=== PATIENT | female | born 1980 | race Two or more races ===

== ENCOUNTER 2017-03-12 11:29 | Emergency (ER) | payer MEDICAID ==
[~2017-03-12] VITALS: Ht 157.5 cm; Wt 81.6 kg
[2017-03-12] MEDS ORDERED: UNOBMED (11:42)
[2017-03-12 12:35] VITALS: BP 130/72
[2017-03-12 12:50] VITALS: BP 130/72
--- NOTE | 2017-03-13 15:52 | Emergency Room Report ---
History of Present Illness General Chief Complaint: Female Urogenital Problems Source: Patient Present Illness HPI 36-year-old female presents ED for Vega catheter placement. Patient is paraplegic and is unable to void. Normally has a Vega catheter but came out last night. Notes bladder fullness. Denies fevers or chills. Denies flank pain. Denies nausea or vomiting. No other aggravating relieving factors. Denies any other associated symptoms Allergies: Coded Allergies: PENICILLINS (Verified Allergy, Unknown, 03/12/17) Patient History Past Medical History: other - paraplegic Past Surgical History: none Pertinent Family History: none Social History: Denies: smoking, alcohol use, drug use Last Menstrual Period: 02/18/17. Now: No Immunizations: UTD Reviewed Nursing Documentation: PMH: Agreed, PSxH: Agreed Review of Systems All Other Systems: negative except mentioned in HPI Physical Exam Vital Signs Date Time Temp Pulse Resp B/P (MAP) Pulse Ox O2 Delivery O2 Flow Rate FiO2 03/12/17 11:38 Room Air 03/12/17 12:35 98.3 80 20 130/72 100 Sp02 EP Interpretation: reviewed, normal General Appearance: no apparent distress, alert, GCS 15, non-toxic Head: normocephalic, atraumatic Eyes: bilateral eye normal inspection, bilateral eye PERRL ENT: hearing grossly normal, normal pharynx, no angioedema, normal voice Neck: full range of motion, supple/symm/no masses Respiratory: chest non-tender, lungs clear, normal breath sounds, speaking full sentences Cardiovascular #1: regular rate, rhythm, no edema Cardiovascular #2: 2+ carotid (R), 2+ carotid (L), 2+ radial (R), 2+ radial (L) , 2+ dorsalis pedis (R), 2+ dorsalis pedis (L) Gastrointestinal: normal bowel sounds, non tender, soft, non-distended, no guarding, no rebound Rectal: deferred Genitourinary: normal inspection, no CVA tenderness Musculoskeletal: back normal Neurologic: alert, oriented x3, responsive, motor strength/tone normal, sensory intact, speech normal Psychiatric: judgement/insight normal, memory normal, mood/affect normal, no suicidal/homicidal ideation Reflexes: 3+ bicep (R), 3+ bicep (L), 3+ tricep (R), 3+ tricep (L), 3+ knee (R) , 3+ knee (L) Skin: normal color, no rash, warm/dry, well hydrated Lymphatic: no adenopathy Medical Decision Making Diagnostic Impression: Primary Impression: Acute retention of urine ER Course Hospital Course 36-year-old F presents to ED complaining of urinary retention. paraplegic, vega catheter came out Differential diagnoses include: obstruction, UTI, BPH Clinical course Patient placed on stretcher. After initial history and physical I ordered vega cather with immediate relief of obstruction Diagnosis - urinary retention Stable and discharged home with vega + leg bag. Instructed to followup with PMD/urologist. Return to ED if symptoms recur or worsen Last Vital Signs Date Time Temp Pulse Resp B/P (MAP) Pulse Ox O2 Delivery O2 Flow Rate FiO2 03/12/17 12:50 98.3 80 20 130/72 100 Room Air Disposition: HOME, SELF-CARE Condition: Stable Referrals: [facility],REFERRING (PCP) Patient Instructions: Acute Urinary Retention, Female, [id number] SILVESTRE REEVES M.D. Mar 13, 2017 15:52
== END 2017-03-12 12:52 | disposition home or self-care (01) ==
LOC: EMR 11:51
DX: R33.9 Retention of urine, unspecified (principal); G82.20 Paraplegia, unspecified; Z88.0 Allergy status to penicillin
CPT/HCPCS: 51702; 99283

== ENCOUNTER 2017-03-15 14:13 | Emergency (ER) | payer MEDICAID ==
[~2017-03-15] VITALS: Ht 157.5 cm; Wt 81.6 kg
[~2017-03-15 14:13] MED LIST: UNOBMED
[2017-03-15 15:17] VITALS: BP 163/103
[2017-03-15 17:03] VITALS: BP 138/84
[2017-03-15] MEDS ORDERED: BACLOFEN10 MG ORAL (17:06)
--- NOTE | 2017-03-15 22:51 | Emergency Room Report ---
History of Present Illness General Chief Complaint: General Complaint Source: Patient, Medical Record Present Illness HPI The patient is a 36-year-old female with a history of paraplegia presenting for Pitts catheter replacement. She was seen in this emergency department 3 days prior for the same complaint. She states that she frequently gets muscular cramps which leads to the removal of the Pitts catheter. She denies any pain. She denies dysuria, vaginal DC, abd pain, back pain, fever, chills Allergies: Coded Allergies: PENICILLINS (Verified Allergy, Unknown, 03/12/17) Patient History Past Medical History: see triage record Pertinent Family History: none Reviewed Nursing Documentation: PMH: Agreed, PSxH: Agreed Nursing Documentation-PMH Past Medical History: No History, Except For Review of Systems All Other Systems: negative except mentioned in HPI Physical Exam Vital Signs Date Time Temp Pulse Resp B/P (MAP) Pulse Ox O2 Delivery O2 Flow Rate FiO2 03/15/17 14:32 98.1 101 18 163/103 98 Room Air Sp02 EP Interpretation: reviewed, normal General Appearance: no apparent distress, alert, GCS 15, non-toxic Head: normocephalic, atraumatic Eyes: bilateral eye normal inspection, bilateral eye PERRL Gastrointestinal: normal bowel sounds, non tender, soft, non-distended, no guarding, no rebound Genitourinary: normal inspection, no CVA tenderness Musculoskeletal: back normal, gait/station normal, normal range of motion, non- tender Neurologic: alert, oriented x3, responsive, motor strength/tone normal, sensory intact, speech normal Skin: normal color, no rash, warm/dry, well hydrated Medical Decision Making PA Attestation Dr. Reese is my supervising physician. Patient management was discussed with my supervising physician Diagnostic Impression: Primary Impression: Malfunction of Pitts catheter Qualified Codes: T83.011A - Breakdown (mechanical) of indwelling urethral catheter, initial encounter ER Course The patient is a 36-year-old female with a history of paraplegia presenting for Pitts catheter replacement. Differential diagnosis considered but not limited to: Pitts malfunction, UTI, BV , yeast infection, pyelonephritis, among others PE: Afebrile. NAD. Abdomen: Normal appearance. Non distended. No ecchymosis. Normal BS. TTP over suprapubic region only. No McBurney point tenderness. No guarding. No CVA tenderness Wheelchair bound Pitts catheter is placed without any difficulty. Urine appears clear but is sent for culture as precaution. She is discharged home with prescription for baclofen and will followup with her primary doctor. ER precautions are given Last Vital Signs Date Time Temp Pulse Resp B/P (MAP) Pulse Ox O2 Delivery O2 Flow Rate FiO2 03/15/17 17:03 72 20 138/84 100 Room Air 03/15/17 15:17 98.1 Status: improved Disposition: HOME, SELF-CARE Condition: Improved Scripts Baclofen* (BACLOFEN*) 10 Mg Tablet 10 MG ORAL THREE TIMES A DAY, #15 TAB Prov: CECI MCKEON 03/15/17 Patient Instructions: Pitts Catheter Care, Adult Additional Instructions: I discussed my findings with the patient. All questions and concerns have been answered. Treatment and medication compliance have been addressed. I advised the patient that they need to follow up with PMD in 3-5 days. Return to ED if symptoms worsen, new symptoms arise, or if needed for any reason. Patient verbalized understanding of discharge instructions. CECI MCKEON Mar 15, 2017 22:51
== END 2017-03-15 17:06 | disposition home or self-care (01) ==
LOC: EMR 15:50
DX: T83.011A Breakdown (mechanical) of indwelling urethral catheter, initial encounter (principal); Z88.0 Allergy status to penicillin
CPT/HCPCS: 99283

== ENCOUNTER 2017-03-22 16:43 | Emergency (ER) | payer MEDICAID ==
[~2017-03-22] VITALS: Ht 160 cm; Wt 79.4 kg
[~2017-03-22 16:43] MED LIST changes: +BACLOFEN10 MG ORAL
--- NOTE | 2017-03-22 17:04 | Emergency Room Report ---
History of Present Illness General Chief Complaint: Female Urogenital Problems Source: Patient Present Illness HPI Patient presents after her Vega catheter came out. It's been happening frequently for her. She has a history of paraplegia and the Vega catheter is chronic. She denies any dysuria. She says it pops out. She denies any blood or any trauma down the genital region although she has decreased sensation there. There's been no fevers, nausea, vomiting, change in bowel habits. She' s requesting dose of baclofen at this time. Allegedly she does have this medicine. She states the vega becomes dislodged when she has muscle spasms. This is the 3rd visit for the same problem since 03/12 (second was 03/15). No headaches, increased weakness. No change in bowels. She denies seizures. Allergies: Coded Allergies: PENICILLINS (Verified Allergy, Unknown, 03/12/17) Patient History Past Medical History: see triage record Social History: Denies: smoking, alcohol use, drug use Social History Narrative wheelchair bound Last Menstrual Period: Unk Reviewed Nursing Documentation: PMH: Agreed, PSxH: Agreed Physical Exam Vital Signs Date Time Temp Pulse Resp B/P (MAP) Pulse Ox O2 Delivery O2 Flow Rate FiO2 03/22/17 16:55 Room Air Sp02 EP Interpretation: reviewed, normal General Appearance: alert, GCS 15, obese Head: normocephalic, atraumatic Eyes: bilateral eye PERRL, bilateral eye abnormal EOM - dyscongugate gaze ENT: hearing grossly normal, normal voice Neck: full range of motion, supple Respiratory: no respiratory distress, speaking full sentences Cardiovascular #1: regular rate, rhythm Cardiovascular #2: 2+ radial (L) Gastrointestinal: non tender, soft, overweight Genitourinary: no CVA tenderness Musculoskeletal: no calf tenderness, other - spasticity of L > R Neurologic: alert, oriented x3, speech normal, motor weakness - and increased tone L, dyscongugate gaze, sensory deficit - lower abdomen/genital regeon Psychiatric: mood/affect normal Skin: no rash Medical Decision Making Diagnostic Impression: Primary Impression: Malfunction of Vega catheter Qualified Codes: T83.011D - Breakdown (mechanical) of indwelling urethral catheter, subsequent encounter Additional Impression: UTI (urinary tract infection) Qualified Codes: N30.00 - Acute cystitis without hematuria ER Course Patient with paraplegia presents again with vega coming out. DDx: vega malfunction, muscle spasms, UTI amongst others. Doubt seizure activity. Patient pressured to continue baclofen and feels this prevents problem. Evaluation with UA. Will replace vega. Discussed need to follow up with her MD for evaluation why vega gets pulled out. No evidence of muscle spasms after baclofen given here. Discussed with caretakers - there was some difference in understanding about baclofen - they might have been giving it twice a day. Started on macrobid. Patient stable for outpatient observation and treatment. Laboratory Tests Test 03/22/17 17:50 Urine Color Pale yellow Urine Appearance Very cloudy Urine pH 6.5 (4.5-8.0) Urine Specific Logan 1.010 (1.005-1.035) Urine Protein 2+ (NEGATIVE) H Urine Glucose (UA) Negative (NEGATIVE) Urine Ketones Negative (NEGATIVE) Urine Occult Blood 4+ (NEGATIVE) H Urine Nitrite Positive (NEGATIVE) H Urine Bilirubin Negative (NEGATIVE) Urine Urobilinogen Normal MG/DL (0.0-1.0) Urine Leukocyte Esterase 3+ (NEGATIVE) H Urine RBC 5-10 /HPF (0 - 2) H Urine WBC Tntc /HPF (0 - 2) H Urine Squamous Epithelial Cells Few /LPF (NONE/OCC) Urine Bacteria Many /HPF (NONE) H Urine HCG, Qualitative Negative Last Vital Signs Date Time Temp Pulse Resp B/P (MAP) Pulse Ox O2 Delivery O2 Flow Rate FiO2 03/22/17 20:10 98.2 72 14 122/78 100 Room Air Status: improved Disposition: HOME, SELF-CARE Condition: Improved Scripts Baclofen* (BACLOFEN*) 10 Mg Tablet 10 MG ORAL THREE TIMES A DAY, #30 TAB Prov: Ismael Mix M.D. 03/22/17 Nitrofurantoin Monohyd/M-Cryst* (MACROBID 100 MG*) 100 Mg Capsule 100 MG ORAL EVERY 12 HOURS, #14 CAP Prov: Ismael Mix M.D. 03/22/17 Ismael Mix M.D. Mar 22, 2017 17:04
[2017-03-22 18:05] LABS: APPEARANCE,URINE VERY CLOUDY; BILIRUBIN, URINE NEGATIVE (NEGATIVE); COLOR,URINE PALE YELLOW; GLUCOSE, URINE (UA) NEGATIVE (NEGATIVE); KETONES,URINE NEGATIVE (NEGATIVE); LEUKOCYTE ESTERASE ,URINE 3+ (NEGATIVE); NITRITE,URINE POSITIVE (NEGATIVE); PH,URINE 6.5 (4.5-8.0); PROTEIN,URINE 2+ (NEGATIVE); UROBILINOGEN,URINE NORMAL MG/DL (0.0-1.0)
[2017-03-22] MEDS ORDERED: BACLOFEN10 MG ORAL (19:56)
[2017-03-22] MEDS ORDERED: NITROFURANTOIN100 M2 ORAL (19:56)
[2017-03-22 20:00] VITALS: BP 122/78
[2017-03-22 20:10] VITALS: BP 122/78
== END 2017-03-22 20:10 | disposition home or self-care (01) ==
LOC: EMR 17:30
DX: T83.018D Breakdown (mechanical) of other urinary catheter, subsequent encounter (principal); Y84.6 Urinary catheterization as the cause of abnormal reaction of the patient, or of later complication, without mention of misadventure at the time of the procedure; Y92.009 Unspecified place in unspecified non-institutional (private) residence as the place of occurrence of the external cause; N39.0 Urinary tract infection, site not specified; G82.20 Paraplegia, unspecified; Z88.0 Allergy status to penicillin
CPT/HCPCS: 81003; 81025; 87086; 87181; 99284